=== PATIENT | male | born 1940 | race Caucasian/White ===

== ENCOUNTER → 2023-06-01 | Outpatient (CLI) | payer OTHER | END | disposition home or self-care (01) | LOC: SHCH 11:16 | PROVIDERS: ATTEND Internal Medicine Cardiovascular Disease | DX: I08.3 Combined rheumatic disorders of mitral, aortic and tricuspid valves (principal); I48.0 Paroxysmal atrial fibrillation; E78.5 Hyperlipidemia, unspecified; E11.9 Type 2 diabetes mellitus without complications; J90 Pleural effusion, not elsewhere classified; I11.9 Hypertensive heart disease without heart failure | CPT/HCPCS: 93306 ==

== ENCOUNTER 2023-07-09 23:36 | Emergency (ER) | payer OTHER ==
[2023-07-09 23:38] VITALS: BP 115/74; PULSE 104; RESP 20
== END 2023-07-10 02:00 ==
LOC: EDH 23:36
DX: R41.82 Altered mental status, unspecified (principal); Z00.8 Encounter for other general examination; E11.9 Type 2 diabetes mellitus without complications; Z87.440 Personal history of urinary (tract) infections